=== PATIENT | male | born 1995 | race Caucasian/White ===

== ENCOUNTER 2017-02-19 14:57 | Emergency (ER) | payer OTHER ==
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
[2017-02-19 14:46] VITALS: RESP 18; O2SAT 98
[~2017-02-19 14:57] MED LIST: HYDROmorphONE/DILAUDID 1 MG/ML INJ IVP ONE; ONDANSETRON 4 MG/2 ML VIAL IVP ONE
[2017-02-19] MEDS ORDERED: LET GEL TOPICAL 1 EA SYR TP ONE (15:35)
[2017-02-19 16:46] VITALS: BP 121/81; PULSE 92; TEMP 98.4
== END 2017-02-19 16:45 | disposition home or self-care (01) ==
DX: S06.0X0A Concussion without loss of consciousness, initial encounter (principal); S52.512A Displaced fracture of left radial styloid process, initial encounter for closed fracture; S09.21XA Traumatic rupture of right ear drum, initial encounter; V13.4XXA Pedal cycle driver injured in collision with car, pick-up truck or van in traffic accident, initial encounter; Y92.410 Unspecified street and highway as the place of occurrence of the external cause; Y99.8 Other external cause status; Y93.55 Activity, bike riding
CPT/HCPCS: 96374; J1170; J2405; L3908

== ENCOUNTER 2017-02-24 11:09 | Emergency (ER) | payer OTHER ==
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
[2017-02-24 12:54] LABS: ADD DIFF? NO; ADD MORPH? NO; ADD SCAN? NO; ATYPICAL LYMPHOCYTE FLAG 0 (0-99); FRAGMENT RBC FLAG 0 (0-99); HEMATOCRIT 40.3 % (40.0-51.0); LEFT SHIFT FLG 0 (0-99); LIPEMIA HEMOLYSIS FLAG 90 (0-99); MEAN CELL HEMOGLOBIN 31.4 pg (27.9-34.1); MEAN CELL HEMOGLOBIN CONCENTR. 34.7 g/dL (32.4-36.7); MEAN CELL VOLUME 90.4 fL (81.5-99.8); MEAN PLATELET VOLUME 10.7 fL (8.7-11.7); PLATELET CLUMPS FLAG 10 (0-99); PLATELET COUNT 153 10^3/uL (150-400); RED BLOOD CELL COUNT 4.46 10^6/uL (4.40-6.38); RED CELL DISTRIBUTION WIDTH 12.1 % (11.5-15.2)
[2017-02-24 13:03] LABS: APTT 30.2 SEC (23.0-38.0); INR 1.01 (0.83-1.16); PROTIME(PATIENT) 13.5 SEC (12.0-15.0)
[2017-02-24 13:35] LABS: ANION GAP 12 mEq/L (8-16); CALCIUM 9.8 mg/dL (8.5-10.4); CARBON DIOXIDE 21 mEq/l (22-31); CHLORIDE 108 mEq/L (97-110); CREATININE 0.9 mg/dL (0.7-1.3); GLOMERULAR FILTRATION RATE > 60; GLUCOSE 92 mg/dL (70-100); POTASSIUM 4.4 mEq/L (3.5-5.2); SODIUM 141 mEq/L (134-144)
[2017-02-24] MEDS ORDERED: IOPAMIDOL (ISOVUE 370) 100 ML BTL IV ONE (14:33)
[2017-02-24 17:23] VITALS: RESP 16; O2SAT 96
[2017-02-24 18:35] VITALS: BP 130/71; PULSE 54; TEMP 97.9
== END 2017-02-24 18:35 | disposition home or self-care (01) ==
DX: G51.0 Bell's palsy (principal); Z87.891 Personal history of nicotine dependence
CPT/HCPCS: Q9967